=== PATIENT | female | born 1975 | race Caucasian/White ===

== ENCOUNTER → 2019-06-13 12:51 | Outpatient (CLI) | payer BC | END | disposition home or self-care (01) | LOC: D.HCCECHO 12:51 | PROVIDERS: ATTEND Internal Medicine Cardiovascular Disease | DX: R00.2 Palpitations (principal) ==

== ENCOUNTER → 2019-10-29 07:51 | Outpatient (CLI) | payer BC | END | disposition home or self-care (01) | LOC: D.NM 07:51 | PROVIDERS: ATTEND Clinical Nurse Specialist Adult Health | DX: R10.11 Right upper quadrant pain (principal) ==

== ENCOUNTER 2019-11-27 07:20 | Day surgery (SDC) | payer BC ==
[2019-11-25 11:56] LABS: BASOPHILS 0.3 % (0-2); EOSINOPHILS 1.1 % (0-7); HEMATOCRIT 40.7 % (36.0-48.0); HEMOGLOBIN 13.6 g/dL (12-16); IMMATURE GRANULOCYTES 0.1 % (0-5); LYMPHOCYTES 18.5 % (15-50); MCH 31.9 pg (26.0-34.0); MCHC 33.4 g/dL (31.0-37.0); MCV 95.5 fL (80.0-100.0); MEAN PLATELET VOLUME 10.5 fL (7.4-10.4); MONOCYTES 10.4 % (2-11); NEUTROPHILS 69.6 % (40-80); PLATELET COUNT 311 10x3/uL (130-400); RBC 4.26 10x6/uL (4.00-5.40); RDW 13.4 % (11.5-14.5)
[2019-11-25 12:13] LABS: CALCIUM 9.1 mg/dL (8.5-10.1)
[~2019-11-27] VITALS: Ht 152.4 cm; Wt 63.0 kg
--- NOTE | ~2019-11-27 | OP ---
PATIENT NAME: JENNY SHULTZ MEDICAL RECORD: [id number] :71 LOCATION:D[facility]OPS ADMISSION DATE: SURGEON: CHIP DAWSON MD DATE OF OPERATION: 11/27/2019 PREOPERATIVE DIAGNOSES: 1. Biliary dyskinesia. 2. Mitral valve prolapse. 3. Anxiety disorder. POSTOPERATIVE DIAGNOSES: 1. Biliary dyskinesia. 2. Mitral valve prolapse. 3. Anxiety disorder. PROCEDURE: Laparoscopic cholecystectomy. SURGEON: Chip Dawson MD REPORT OF PROCEDURE: The patient's abdomen was prepped and draped in sterile fashion. A cutdown was made on the superior aspect of the umbilicus, 0 Vicryls were placed in the fascia bilaterally and the fascia was incised with 15-blade. I then bluntly entered the peritoneal cavity and placed a 12-mm Marleny port. Under direct visualization, a 5 mm trocar was placed in the epigastrium and 2 more 5-mm trocars were placed in the right subcostal region. The gallbladder was grasped and elevated. The cystic artery and cystic duct were dissected free and these were clipped proximally and distally and ligated in standard fashion. The gallbladder was taken off the liver bed using electrocautery and placed into the right upper quadrant. Any bleeding from the liver bed was then treated with electrocautery. We irrigated out the right upper quadrant and assured there was no sign of any bleeding or bile leakage. At this point, the ports and insufflation were then removed and the gallbladder was taken out through the umbilicus. The umbilical fascia was closed with interrupted 0 Vicryls times 3. The wounds were then irrigated out with normal saline, infused with 10 mL of 0.25% Marcaine with epinephrine. The skin incisions were all closed with subcutaneous 5-0 Monocryl and dressed appropriately. COMPLICATIONS: None. CONDITION: Stable. ANESTHESIA: General endotracheal and local. BLOOD LOSS: Minimal. 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
[~2019-11-27 07:20] MED LIST: CELEXA10 MG PO; METOPROLOL TART25 MG PO; TRI SPRINTEC; ZYRTEC10 MG PO
[2019-11-27 08:09] LABS: HCG URINE NEGATIVE (NEGATIVE)
[2019-11-27 08:17] VITALS: BP 112/65; Ht 152.4 cm; Wt 63.0 kg
[2019-11-27] MEDS ORDERED: ULTRAM50 MG PO (10:48)
--- NOTE | 2019-11-27 18:42 | NUR ---
1230 NAUSEATED MEDICATED WITH ZOFRAN IVP 1305 NO RELIEF FROM NAUSEA MEDICATED PHENERGAN IVP WITH GOOD RESULTS. 1400 PT VOIDED IN BATHROOM IV REMOVED INSTRUCTIONS GIVEN TO PT
== END 2019-11-27 14:15 | disposition home or self-care (01) ==
LOC: D.OPS 07:20 → D.PAN 08:30 → D.OPS 08:30
PROVIDERS: ATTEND Surgery
DX: K82.8 Other specified diseases of gallbladder (principal); I34.1 Nonrheumatic mitral (valve) prolapse; F41.9 Anxiety disorder, unspecified